=== PATIENT | female | born 1965 | race Caucasian/White ===

== ENCOUNTER → 2016-09-28 | Outpatient (CLI) | payer BC ==
--- NOTE | 2016-09-28 13:52 | DIAGNOSTIC IMAGING REPORT ---
Ultrasound right antecubital fossa RIGHT EXTREMITY NONVASCULAR LIMITED CLINICAL HISTORY: LIPOMA R ELBOW, HX BREAST CA Right nodule TECHNIQUE: Ultrasound COMPARISON STUDY: None FINDINGS: Ultrasonic evaluation of the anterior antecubital fossa the right elbow shows no well-defined soft tissue mass or collection. Echogenicity of all major tissues appear unremarkable. IMPRESSION: Normal study. No evidence for nodular pathology by ultrasound criteria Electronically signed by: Luis Alberto Martinez M.D. 09/28/2016 1:50 PM Dictated Date/Time: 09/28/2016 1:49 PM
== END | disposition home or self-care (01) ==
LOC: C.ULTRBC 13:08
PROVIDERS: ATTEND Family Medicine
DX: D17.9 Benign lipomatous neoplasm, unspecified (principal)

== ENCOUNTER → 2017-01-01 | Outpatient (CLI) | payer BC ==
--- NOTE | 2017-01-01 10:03 | DIAGNOSTIC IMAGING REPORT ---
SOFT TISS HEAD/NECK-THYROID CLINICAL HISTORY: 51 years-old Female presenting with ENLARGED LYMPH NODES, PRURITUS, lateral left neck lump, rash on scalp. TECHNIQUE: Real-time grayscale and color Doppler ultrasound imaging of the left base of the neck was performed. COMPARISON: None. FINDINGS: At the left base of the neck at the site of clinical interest, a round hypoechoic 1.2 x 1.3 x 1.3 cm mass is noted subjacent to the musculature with no demonstrable internal color Doppler flow. Multiple adjacent prominent hypoechoic to anechoic structures represents enlarged lymph nodes. No normal fatty raghav are evident. IMPRESSION: Findings most consistent with suspicious lymphadenopathy at the site of clinical interest in the lateral left neck. Fine-needle aspiration of the largest lymph node is recommended given the concern for lymphoproliferative disease. The report will be called/faxed according to standard departmental protocol. Electronically signed by: Matt Casiano M.D. 01/01/2017 10:02 AM Dictated Date/Time: 01/01/2017 9:59 AM
== END | disposition home or self-care (01) ==
LOC: C.ULTR 09:28
PROVIDERS: ATTEND Family Medicine
DX: R59.9 Enlarged lymph nodes, unspecified (principal); L29.9 Pruritus, unspecified

== ENCOUNTER → 2017-04-16 | Outpatient (CLI) | payer BC ==
--- NOTE | 2017-04-16 10:33 | DIAGNOSTIC IMAGING REPORT ---
R FINGER(S) MIN 2 VIEWS ROUTINE CLINICAL HISTORY: UNSPECIFIED DEFORMITY OF UNSPECIFED FINGER pain COMPARISON: None. DISCUSSION: The bones and joint spaces appear intact. There is no evidence of fracture, dislocation or bony disease. Mild soft tissue edema adjacent to the proximal interphalangeal joint. IMPRESSION: Mild soft tissue edema. No acute bony abnormality. The above report was generated using voice recognition software. It may contain grammatical, syntax or spelling errors. Electronically signed by: Luis Alberto Martinez M.D. 04/16/2017 10:31 AM Dictated Date/Time: 04/16/2017 10:31 AM
== END | disposition home or self-care (01) ==
LOC: C.RAD1850 10:09
PROVIDERS: ATTEND Family Medicine
DX: M20.009 Unspecified deformity of unspecified finger(s) (principal)

== ENCOUNTER → 2017-05-16 | Outpatient (CLI) | payer BC, OTHER | END | disposition home or self-care (01) | LOC: C.RDSM 09:50 | PROVIDERS: ATTEND Orthopaedic Surgery | DX: R52 Pain, unspecified (principal) ==